=== PATIENT | male | born 1950 | race Hispanic/Latino ===

== ENCOUNTER 2020-06-23 11:34 | Emergency (ER) | payer OTHER ==
[~2020-06-23] VITALS: Ht 170.2 cm; Wt 77.1 kg
[~2020-06-23 11:34] MED LIST: LORTAB 7.51 EA PO; Z.0.LEVAQUIN500 MG PO; Z.0.LISINOPRIL10 MG PO; Z.0.SIMVASTATIN40 MG; Z.0.VICODIN HP TAB1 PO; [UNRECOGNIZED DRUG - OTHER]
[2020-06-23] MEDS ORDERED: DEXAMETHASONE SOD PHOS 10 MG/1 ML VIAL IV SCH (12:30)
[2020-06-23] MEDS ORDERED: AZITHROMYCIN 500MG/NS 250 ML 250 ML IV SCH (12:30)
[2020-06-23 12:52] LABS: BASOPHILS % 0.1 % (0.0-1.0); HEMATOCRIT 39.5 % (38.2-49.6); HEMOGLOBIN 13.3 g/dL (14.0-18.0); LYMPHOCYTES # (AUTO) 0.5 (1.0-3.2); LYMPHOCYTES % 3.7 % (18.0-39.1); MEAN CORPUSCULAR HEMOGLOBIN 30.4 pg (28-32); MEAN CORPUSCULAR HGB CONC 33.7 g/dL (31-35); MEAN CORPUSCULAR VOLUME 90.4 fL (81-99); MONOCYTES # (AUTO) 0.3 (0.2-0.8); MONOCYTES % 2.1 % (4.4-11.3); NEUTROPHILS # (AUTO) 13.2 (2.1-6.9); NEUTROPHILS % 93.3 % (38.7-80.0); PLATELET COUNT 229 x10e3/uL (140-360); RED BLOOD COUNT 4.37 x10e6/uL (4.3-5.7); RED CELL DISTRIBUTION WIDTH 12.8 % (11.7-14.4)
[2020-06-23 12:57] LABS: INR 0.96; PROTHROMBIN TIME 13.4 seconds (11.9-14.5)
[2020-06-23] MEDS ORDERED: CEFTRIAXONE SOD 1 GM/NS 50 ML 50 ML IV SCH (13:00)
[2020-06-23 13:06] LABS: ALBUMIN 2.5 g/dL (3.5-5.0); ALBUMIN/GLOBULIN RATIO 0.6 (0.8-2.0); ANION GAP 18.1 mmol/L (8-16); CALCIUM 8.3 mg/dL (8.4-10.2); CREATININE, SERUM 1.61 mg/dL (0.72-1.25); MAGNESIUM 1.9 MG/DL (1.3-2.1); POTASSIUM 5.1 mmol/L (3.5-5.1)
[2020-06-23 13:13] LABS: CREATINE KINASE MB 0.5 ng/mL (0-5.0)
[2020-06-23 15:16] VITALS: BP 130/87
== END 2020-06-23 15:32 | disposition home or self-care (01) ==
LOC: ER 12:03
DX: U07.1 COVID-19 (principal); J18.9 Pneumonia, unspecified organism; R06.02 Shortness of breath; R05 Cough; E78.00 Pure hypercholesterolemia, unspecified
CPT/HCPCS: 36415; 71045; 80053; 82550; 82553; 83735; 83880; 84484; 85025; 85610; 85730; 87040; 93005; 99285; J0456; J0696; J1100; U0002

== ENCOUNTER 2020-06-25 10:39 | Inpatient (IN) | payer MEDICARE, OTHER ==
[~2020-06-25] VITALS: Ht 170.2 cm; Wt 77.1 kg
[2020-06-25 11:42] LABS: BASOPHILS % 0.2 % (0.0-1.0); EOSINOPHILS % 0.1 % (0.0-6.0); HEMATOCRIT 42.4 % (38.2-49.6); HEMOGLOBIN 14.1 g/dL (14.0-18.0); LYMPHOCYTES # (AUTO) 0.7 (1.0-3.2); LYMPHOCYTES % 4.7 % (18.0-39.1); MEAN CORPUSCULAR HEMOGLOBIN 30.1 pg (28-32); MEAN CORPUSCULAR HGB CONC 33.3 g/dL (31-35); MEAN CORPUSCULAR VOLUME 90.6 fL (81-99); MONOCYTES # (AUTO) 0.4 (0.2-0.8); MONOCYTES % 2.6 % (4.4-11.3); NEUTROPHILS # (AUTO) 14.2 (2.1-6.9); NEUTROPHILS % 91.4 % (38.7-80.0); PLATELET COUNT 132 x10e3/uL (140-360); RED BLOOD COUNT 4.68 x10e6/uL (4.3-5.7)
[2020-06-25 11:53] LABS: ALANINE AMINOTRANSFERASE 78 IU/L (0-55); ALBUMIN 2.4 g/dL (3.5-5.0); ALBUMIN/GLOBULIN RATIO 0.5 (0.8-2.0); ALKALINE PHOSPHATASE 165 IU/L (40-150); ANION GAP 19.6 mmol/L (8-16); BLOOD UREA NITROGEN 38 mg/dL (7-26); BUN/CREATININE RATIO 35 (6-25); CALCIUM 8.1 mg/dL (8.4-10.2); CARBON DIOXIDE 22 mmol/L (22-29); CHLORIDE 101 mmol/L (98-107); CREATINE KINASE 46 IU/L (30-200); EST GLOMERULAR FILTRATION RATE > 60 ML/MIN (60-); GLUCOSE 324 mg/dL (74-118); POTASSIUM 4.6 mmol/L (3.5-5.1); SODIUM 138 mmol/L (136-145)
[2020-06-25] MEDS ORDERED: LACTATED RINGER'S 1,000 ML INJ ONE (16:30)
[2020-06-25] MEDS ORDERED: GUAIFENESIN/CODEINE 10 ML CUP PO PRN (16:30)
[2020-06-25] MEDS: ENOXAPARIN SOD INJ 40 MG/0.4 ML SYR SC SCH (16:57)
[2020-06-25] MEDS: ASCORBIC ACID 500 MG TAB PO SCH (16:57)
[2020-06-25] MEDS: CEFTRIAXONE SOD 1 GM/NS 50 ML 50 ML IV SCH (16:57)
[2020-06-25] MEDS: AZITHROMYCIN 500MG/NS 250 ML 250 ML IV SCH (17:22)
[2020-06-25 18:47] LABS: CREATINE KINASE MB 0.4 ng/mL (0-5.0)
[2020-06-25] MEDS ORDERED: REMDESIVIR 200MG/NS 100ML 200 MG in SODIUM CHLORIDE 0.9% 100 ML 100 ML IV ONE (19:30)
[2020-06-25 20:00] VITALS: BP 134/76
[2020-06-25] MEDS: ZOLPIDEM TARTRATE 5 MG TAB PO PRN (20:24)
[2020-06-25 21:00] VITALS: BP 143/71
[2020-06-25] MEDS: DEXAMETHASONE 4 MG TAB PO SCH (22:00)
[2020-06-25] MEDS ORDERED: HYDROCODONE/APAP 5MG-325MG TAB PO PRN (22:30)
[2020-06-25] MEDS: ACETAMINOPHEN 325 MG TAB PO PRN (22:50)
[2020-06-26] VITALS (8 sets, daily range): BP systolic 125–142; BP diastolic 57–74
[2020-06-26 05:33] LABS: BASOPHILS % 0.1 % (0.0-1.0); HEMATOCRIT 38.8 % (38.2-49.6); LYMPHOCYTES # (AUTO) 0.4 (1.0-3.2); LYMPHOCYTES % 3.1 % (18.0-39.1); MEAN CORPUSCULAR HEMOGLOBIN 29.5 pg (28-32); MEAN CORPUSCULAR HGB CONC 33.5 g/dL (31-35); MEAN CORPUSCULAR VOLUME 88.2 fL (81-99); MONOCYTES # (AUTO) 0.3 (0.2-0.8); MONOCYTES % 2.3 % (4.4-11.3); NEUTROPHILS # (AUTO) 12.7 (2.1-6.9); NEUTROPHILS % 93.8 % (38.7-80.0); RED CELL DISTRIBUTION WIDTH 12.9 % (11.7-14.4)
[2020-06-26 05:43] LABS: PLATELET COUNT 95 x10e3/uL (140-360)
[2020-06-26 05:56] LABS: ALANINE AMINOTRANSFERASE 94 IU/L (0-55); ALBUMIN/GLOBULIN RATIO 0.5 (0.8-2.0); ALKALINE PHOSPHATASE 176 IU/L (40-150); ANION GAP 13.9 mmol/L (8-16); BLOOD UREA NITROGEN 27 mg/dL (7-26); BUN/CREATININE RATIO 33 (6-25); CALCIUM 7.9 mg/dL (8.4-10.2); CARBON DIOXIDE 22 mmol/L (22-29); CHLORIDE 102 mmol/L (98-107); CREATININE, SERUM 0.82 mg/dL (0.72-1.25); EST GLOMERULAR FILTRATION RATE > 60 ML/MIN (60-); GLUCOSE 295 mg/dL (74-118); POTASSIUM 4.9 mmol/L (3.5-5.1); SODIUM 133 mmol/L (136-145)
[2020-06-26] MEDS: ZINC SULFATE 220 MG CAP PO SCH (09:38)
[2020-06-26] MEDS: ASCORBIC ACID 500 MG TAB PO SCH ×2 (09:38→17:20)
[2020-06-26] MEDS: REMDESIVIR 100MG/NS 100ML 100 MG IV SCH (14:40)
[2020-06-26] MEDS: CEFTRIAXONE SOD 1 GM/NS 50 ML 50 ML IV SCH (16:00)
[2020-06-26] MEDS: AZITHROMYCIN 500MG/NS 250 ML 250 ML IV SCH (17:20)
[2020-06-26] MEDS: ENOXAPARIN SOD INJ 40 MG/0.4 ML SYR SC SCH (17:20)
[2020-06-26] MEDS: DEXAMETHASONE 4 MG TAB PO SCH (21:21)
[2020-06-26] MEDS: ZOLPIDEM TARTRATE 5 MG TAB PO PRN (22:33)
[2020-06-27] VITALS (9 sets, daily range): BP systolic 122–134; BP diastolic 65–82
[2020-06-27 06:01] LABS: BASOPHILS % 0.1 % (0.0-1.0); HEMATOCRIT 36.8 % (38.2-49.6); HEMOGLOBIN 12.5 g/dL (14.0-18.0); LYMPHOCYTES # (AUTO) 0.4 (1.0-3.2); LYMPHOCYTES % 3.3 % (18.0-39.1); MEAN CORPUSCULAR HEMOGLOBIN 30.4 pg (28-32); MEAN CORPUSCULAR VOLUME 89.5 fL (81-99); MONOCYTES # (AUTO) 0.2 (0.2-0.8); MONOCYTES % 1.5 % (4.4-11.3); NEUTROPHILS # (AUTO) 10.2 (2.1-6.9); NEUTROPHILS % 94.4 % (38.7-80.0); RED BLOOD COUNT 4.11 x10e6/uL (4.3-5.7); RED CELL DISTRIBUTION WIDTH 12.7 % (11.7-14.4)
[2020-06-27 06:13] LABS: PLATELET COUNT 86 x10e3/uL (140-360)
[2020-06-27 06:24] LABS: ALANINE AMINOTRANSFERASE 138 IU/L (0-55); ALBUMIN 1.8 g/dL (3.5-5.0); ALKALINE PHOSPHATASE 240 IU/L (40-150); ANION GAP 12.9 mmol/L (8-16); BILIRUBIN,DIRECT 0.4 mg/dL (0.0-0.5); BLOOD UREA NITROGEN 28 mg/dL (7-26); BUN/CREATININE RATIO 36 (6-25); CALCIUM 7.6 mg/dL (8.4-10.2); CARBON DIOXIDE 23 mmol/L (22-29); CHLORIDE 103 mmol/L (98-107); CREATININE, SERUM 0.78 mg/dL (0.72-1.25); EST GLOMERULAR FILTRATION RATE > 60 ML/MIN (60-); GLUCOSE 307 mg/dL (74-118); POTASSIUM 4.9 mmol/L (3.5-5.1); SODIUM 134 mmol/L (136-145)
[2020-06-27] MEDS: INSULIN LISPRO 100 UNIT/1 ML 3ML VIAL SQ SCH ×4 (08:02→21:00)
[2020-06-27] MEDS: ASCORBIC ACID 500 MG TAB PO SCH ×2 (09:31→17:21)
[2020-06-27] MEDS: ZINC SULFATE 220 MG CAP PO SCH (09:31)
[2020-06-27] MEDS: REMDESIVIR 100MG/NS 100ML 100 MG IV SCH (14:15)
[2020-06-27] MEDS: ENOXAPARIN SOD INJ 40 MG/0.4 ML SYR SC SCH (17:21)
[2020-06-27] MEDS: CEFTRIAXONE SOD 1 GM/NS 50 ML 50 ML IV SCH (17:21)
[2020-06-27] MEDS: AZITHROMYCIN 500MG/NS 250 ML 250 ML IV SCH (18:30)
[2020-06-27] MEDS: INSULIN GLARGINE 100 UNITS/ML VIAL SQ SCH (21:00)
[2020-06-27] MEDS: DEXAMETHASONE 4 MG TAB PO SCH (22:00)
[2020-06-28] VITALS (8 sets, daily range): BP systolic 111–135; BP diastolic 64–78
[2020-06-28 05:41] LABS: BASOPHILS % 0.2 % (0.0-1.0); HEMATOCRIT 36.2 % (38.2-49.6); HEMOGLOBIN 12.4 g/dL (14.0-18.0); LYMPHOCYTES # (AUTO) 0.4 (1.0-3.2); LYMPHOCYTES % 2.9 % (18.0-39.1); MEAN CORPUSCULAR HGB CONC 34.3 g/dL (31-35); MEAN CORPUSCULAR VOLUME 87.4 fL (81-99); MONOCYTES # (AUTO) 0.2 (0.2-0.8); MONOCYTES % 1.7 % (4.4-11.3); NEUTROPHILS # (AUTO) 13.1 (2.1-6.9); NEUTROPHILS % 94.4 % (38.7-80.0); PLATELET COUNT 81 x10e3/uL (140-360); RED BLOOD COUNT 4.14 x10e6/uL (4.3-5.7); RED CELL DISTRIBUTION WIDTH 12.6 % (11.7-14.4)
[2020-06-28 06:14] LABS: ALANINE AMINOTRANSFERASE 112 IU/L (0-55); ALBUMIN 1.9 g/dL (3.5-5.0); ALKALINE PHOSPHATASE 225 IU/L (40-150); ANION GAP 14.6 mmol/L (8-16); BILIRUBIN,DIRECT 0.4 mg/dL (0.0-0.5); BLOOD UREA NITROGEN 31 mg/dL (7-26); BUN/CREATININE RATIO 44 (6-25); CALCIUM 7.5 mg/dL (8.4-10.2); CARBON DIOXIDE 22 mmol/L (22-29); CHLORIDE 103 mmol/L (98-107); CREATININE, SERUM 0.71 mg/dL (0.72-1.25); EST GLOMERULAR FILTRATION RATE > 60 ML/MIN (60-); GLUCOSE 238 mg/dL (74-118); POTASSIUM 4.6 mmol/L (3.5-5.1); SODIUM 135 mmol/L (136-145)
[2020-06-28] MEDS: ASCORBIC ACID 500 MG TAB PO SCH ×2 (09:35→17:02)
[2020-06-28] MEDS: ZINC SULFATE 220 MG CAP PO SCH (09:35)
[2020-06-28] MEDS: INSULIN LISPRO 100 UNIT/1 ML 3ML VIAL SQ SCH ×4 (09:48→21:47)
[2020-06-28] MEDS: REMDESIVIR 100MG/NS 100ML 100 MG IV SCH (14:01)
[2020-06-28] MEDS: CEFTRIAXONE SOD 1 GM/NS 50 ML 50 ML IV SCH (17:02)
[2020-06-28] MEDS: ENOXAPARIN SOD INJ 40 MG/0.4 ML SYR SC SCH (17:02)
[2020-06-28] MEDS: AZITHROMYCIN 500MG/NS 250 ML 250 ML IV SCH (17:54)
[2020-06-28] MEDS: INSULIN GLARGINE 100 UNITS/ML VIAL SQ SCH (21:48)
[2020-06-28] MEDS: DEXAMETHASONE 4 MG TAB PO SCH (23:21)
[2020-06-29] VITALS (8 sets, daily range): BP systolic 114–142; BP diastolic 67–83
[2020-06-29 05:01] LABS: BASOPHILS % 0.1 % (0.0-1.0); HEMATOCRIT 37.2 % (38.2-49.6); HEMOGLOBIN 12.8 g/dL (14.0-18.0); LYMPHOCYTES # (AUTO) 0.4 (1.0-3.2); LYMPHOCYTES % 2.9 % (18.0-39.1); MEAN CORPUSCULAR HEMOGLOBIN 30.3 pg (28-32); MEAN CORPUSCULAR HGB CONC 34.4 g/dL (31-35); MEAN CORPUSCULAR VOLUME 88.2 fL (81-99); MONOCYTES # (AUTO) 0.3 (0.2-0.8); MONOCYTES % 1.7 % (4.4-11.3); NEUTROPHILS # (AUTO) 13.9 (2.1-6.9); NEUTROPHILS % 94.4 % (38.7-80.0); PLATELET COUNT 69 x10e3/uL (140-360); RED BLOOD COUNT 4.22 x10e6/uL (4.3-5.7); RED CELL DISTRIBUTION WIDTH 12.5 % (11.7-14.4)
[2020-06-29] MEDS: ZINC SULFATE 220 MG CAP PO SCH (08:34)
[2020-06-29] MEDS: ASCORBIC ACID 500 MG TAB PO SCH ×2 (08:34→16:49)
[2020-06-29] MEDS: INSULIN LISPRO 100 UNIT/1 ML 3ML VIAL SQ SCH ×4 (08:37→20:46)
[2020-06-29] MEDS: REMDESIVIR 100MG/NS 100ML 100 MG IV SCH (15:13)
[2020-06-29] MEDS: ENOXAPARIN SOD INJ 40 MG/0.4 ML SYR SC SCH (16:49)
[2020-06-29] MEDS: CEFTRIAXONE SOD 1 GM/NS 50 ML 50 ML IV SCH (16:49)
[2020-06-29] MEDS: AZITHROMYCIN 500MG/NS 250 ML 250 ML IV SCH (16:49)
[2020-06-29] MEDS: INSULIN GLARGINE 100 UNITS/ML VIAL SQ SCH (20:47)
[2020-06-29] MEDS: DEXAMETHASONE 4 MG TAB PO SCH (21:29)
[2020-06-30] VITALS (8 sets, daily range): BP systolic 119–131; BP diastolic 64–79
[2020-06-30 05:31] LABS: BASOPHILS % 0.2 % (0.0-1.0); HEMATOCRIT 36.8 % (38.2-49.6); HEMOGLOBIN 12.7 g/dL (14.0-18.0); LYMPHOCYTES # (AUTO) 0.4 (1.0-3.2); LYMPHOCYTES % 3.3 % (18.0-39.1); MEAN CORPUSCULAR HEMOGLOBIN 30.2 pg (28-32); MEAN CORPUSCULAR HGB CONC 34.5 g/dL (31-35); MEAN CORPUSCULAR VOLUME 87.6 fL (81-99); MONOCYTES # (AUTO) 0.2 (0.2-0.8); NEUTROPHILS # (AUTO) 10.7 (2.1-6.9); NEUTROPHILS % 93.5 % (38.7-80.0); PLATELET COUNT 64 x10e3/uL (140-360); RED CELL DISTRIBUTION WIDTH 12.6 % (11.7-14.4)
[2020-06-30 05:55] LABS: ALANINE AMINOTRANSFERASE 75 IU/L (0-55); ALBUMIN 1.9 g/dL (3.5-5.0); ALBUMIN/GLOBULIN RATIO 0.6 (0.8-2.0); ALKALINE PHOSPHATASE 196 IU/L (40-150); ANION GAP 13.6 mmol/L (8-16); BLOOD UREA NITROGEN 29 mg/dL (7-26); BUN/CREATININE RATIO 43 (6-25); CALCIUM 7.4 mg/dL (8.4-10.2); CARBON DIOXIDE 24 mmol/L (22-29); CHLORIDE 102 mmol/L (98-107); CREATININE, SERUM 0.67 mg/dL (0.72-1.25); EST GLOMERULAR FILTRATION RATE > 60 ML/MIN (60-); GLUCOSE 214 mg/dL (74-118); POTASSIUM 4.6 mmol/L (3.5-5.1); SODIUM 135 mmol/L (136-145)
[2020-06-30] MEDS: INSULIN LISPRO 100 UNIT/1 ML 3ML VIAL SQ SCH ×4 (07:30→21:00)
[2020-06-30] MEDS: ASCORBIC ACID 500 MG TAB PO SCH ×2 (08:43→17:05)
[2020-06-30] MEDS: ZINC SULFATE 220 MG CAP PO SCH (08:43)
[2020-06-30] MEDS: ENOXAPARIN SOD INJ 40 MG/0.4 ML SYR SC SCH (17:05)
[2020-06-30] MEDS: CEFTRIAXONE SOD 1 GM/NS 50 ML 50 ML IV SCH (17:05)
[2020-06-30] MEDS: AZITHROMYCIN 500MG/NS 250 ML 250 ML IV SCH (17:53)
[2020-06-30] MEDS: ZOLPIDEM TARTRATE 5 MG TAB PO PRN (21:12)
[2020-06-30] MEDS: DEXAMETHASONE 4 MG TAB PO SCH (21:12)
[2020-06-30] MEDS: INSULIN GLARGINE 100 UNITS/ML VIAL SQ SCH (21:19)
[2020-07-01] VITALS (8 sets, daily range): BP systolic 111–129; BP diastolic 57–71
[2020-07-01 04:41] LABS: BASOPHILS % 0.2 % (0.0-1.0); HEMATOCRIT 35.5 % (38.2-49.6); HEMOGLOBIN 12.2 g/dL (14.0-18.0); LYMPHOCYTES # (AUTO) 0.4 (1.0-3.2); LYMPHOCYTES % 2.6 % (18.0-39.1); MEAN CORPUSCULAR HEMOGLOBIN 29.7 pg (28-32); MEAN CORPUSCULAR HGB CONC 34.4 g/dL (31-35); MEAN CORPUSCULAR VOLUME 86.4 fL (81-99); MONOCYTES # (AUTO) 0.3 (0.2-0.8); MONOCYTES % 1.8 % (4.4-11.3); NEUTROPHILS # (AUTO) 13.4 (2.1-6.9); NEUTROPHILS % 94.4 % (38.7-80.0); PLATELET COUNT 78 x10e3/uL (140-360); RED BLOOD COUNT 4.11 x10e6/uL (4.3-5.7); RED CELL DISTRIBUTION WIDTH 12.9 % (11.7-14.4)
[2020-07-01 04:58] LABS: ALANINE AMINOTRANSFERASE 60 IU/L (0-55); ALBUMIN 1.9 g/dL (3.5-5.0); ALBUMIN/GLOBULIN RATIO 0.6 (0.8-2.0); ALKALINE PHOSPHATASE 178 IU/L (40-150); ANION GAP 14.8 mmol/L (8-16); BLOOD UREA NITROGEN 26 mg/dL (7-26); BUN/CREATININE RATIO 39 (6-25); CALCIUM 7.4 mg/dL (8.4-10.2); CARBON DIOXIDE 22 mmol/L (22-29); CHLORIDE 101 mmol/L (98-107); CREATININE, SERUM 0.67 mg/dL (0.72-1.25); EST GLOMERULAR FILTRATION RATE > 60 ML/MIN (60-); GLUCOSE 234 mg/dL (74-118); POTASSIUM 4.8 mmol/L (3.5-5.1); SODIUM 133 mmol/L (136-145)
[2020-07-01] MEDS: INSULIN LISPRO 100 UNIT/1 ML 3ML VIAL SQ SCH ×4 (07:30→20:26)
[2020-07-01] MEDS: ASCORBIC ACID 500 MG TAB PO SCH ×2 (09:12→17:11)
[2020-07-01] MEDS: ZINC SULFATE 220 MG CAP PO SCH (09:12)
[2020-07-01] MEDS: FONDAPARINUX SODIUM 2.5 MG/0.5 ML SYR SQ SCH (17:11)
[2020-07-01] MEDS: CEFTRIAXONE SOD 1 GM/NS 50 ML 50 ML IV SCH (17:11)
[2020-07-01] MEDS ORDERED: SODIUM CHLORIDE 0.9% 250ML 250 ML ONE (17:34)
[2020-07-01] MEDS: AZITHROMYCIN 500MG/NS 250 ML 250 ML IV SCH (17:54)
[2020-07-01] MEDS: ACETAMINOPHEN 325 MG TAB PO PRN (20:01)
[2020-07-01] MEDS: INSULIN GLARGINE 100 UNITS/ML VIAL SQ SCH (20:27)
[2020-07-01] MEDS: DEXAMETHASONE 4 MG TAB PO SCH (22:01)
[2020-07-02] VITALS (8 sets, daily range): BP systolic 121–138; BP diastolic 66–77
[2020-07-02 04:00] LABS: BASOPHILS % 0.1 % (0.0-1.0); HEMATOCRIT 35.2 % (38.2-49.6); HEMOGLOBIN 12.3 g/dL (14.0-18.0); LYMPHOCYTES # (AUTO) 0.3 (1.0-3.2); LYMPHOCYTES % 1.9 % (18.0-39.1); MEAN CORPUSCULAR HEMOGLOBIN 30.1 pg (28-32); MEAN CORPUSCULAR HGB CONC 34.9 g/dL (31-35); MEAN CORPUSCULAR VOLUME 86.1 fL (81-99); MONOCYTES # (AUTO) 0.2 (0.2-0.8); MONOCYTES % 1.5 % (4.4-11.3); NEUTROPHILS # (AUTO) 14.6 (2.1-6.9); NEUTROPHILS % 95.7 % (38.7-80.0); PLATELET COUNT 92 x10e3/uL (140-360); RED BLOOD COUNT 4.09 x10e6/uL (4.3-5.7); RED CELL DISTRIBUTION WIDTH 12.9 % (11.7-14.4)
[2020-07-02 04:18] LABS: ALANINE AMINOTRANSFERASE 51 IU/L (0-55); ALBUMIN 1.9 g/dL (3.5-5.0); ALBUMIN/GLOBULIN RATIO 0.6 (0.8-2.0); ALKALINE PHOSPHATASE 162 IU/L (40-150); ANION GAP 11.5 mmol/L (8-16); BLOOD UREA NITROGEN 22 mg/dL (7-26); BUN/CREATININE RATIO 36 (6-25); CALCIUM 7.2 mg/dL (8.4-10.2); CARBON DIOXIDE 23 mmol/L (22-29); CHLORIDE 101 mmol/L (98-107); CREATININE, SERUM 0.61 mg/dL (0.72-1.25); EST GLOMERULAR FILTRATION RATE > 60 ML/MIN (60-); GLUCOSE 154 mg/dL (74-118); POTASSIUM 4.5 mmol/L (3.5-5.1); SODIUM 131 mmol/L (136-145)
[2020-07-02] MEDS: INSULIN LISPRO 100 UNIT/1 ML 3ML VIAL SQ SCH ×4 (07:30→20:21)
[2020-07-02] MEDS: ASCORBIC ACID 500 MG TAB PO SCH ×2 (09:05→16:58)
[2020-07-02] MEDS: ZINC SULFATE 220 MG CAP PO SCH (09:05)
[2020-07-02] MEDS: CEFTRIAXONE SOD 1 GM/NS 50 ML 50 ML IV SCH (16:58)
[2020-07-02] MEDS: FONDAPARINUX SODIUM 2.5 MG/0.5 ML SYR SQ SCH (16:58)
[2020-07-02] MEDS: AZITHROMYCIN 500MG/NS 250 ML 250 ML IV SCH (18:05)
[2020-07-02] MEDS: INSULIN GLARGINE 100 UNITS/ML VIAL SQ SCH (21:00)
[2020-07-02] MEDS: DEXAMETHASONE 4 MG TAB PO SCH (21:38)
[2020-07-03] VITALS (8 sets, daily range): BP systolic 105–133; BP diastolic 67–72
[2020-07-03 05:02] LABS: BASOPHILS % 0.2 % (0.0-1.0); HEMATOCRIT 35.5 % (38.2-49.6); HEMOGLOBIN 12.2 g/dL (14.0-18.0); LYMPHOCYTES # (AUTO) 0.3 (1.0-3.2); LYMPHOCYTES % 2.6 % (18.0-39.1); MEAN CORPUSCULAR HEMOGLOBIN 29.6 pg (28-32); MEAN CORPUSCULAR HGB CONC 34.4 g/dL (31-35); MEAN CORPUSCULAR VOLUME 86.2 fL (81-99); MONOCYTES # (AUTO) 0.2 (0.2-0.8); MONOCYTES % 1.9 % (4.4-11.3); NEUTROPHILS # (AUTO) 11.1 (2.1-6.9); NEUTROPHILS % 94.7 % (38.7-80.0); PLATELET COUNT 121 x10e3/uL (140-360); RED BLOOD COUNT 4.12 x10e6/uL (4.3-5.7); RED CELL DISTRIBUTION WIDTH 12.9 % (11.7-14.4)
[2020-07-03 05:14] LABS: ANION GAP 12.6 mmol/L (8-16); BLOOD UREA NITROGEN 22 mg/dL (7-26); BUN/CREATININE RATIO 35 (6-25); CALCIUM 7.5 mg/dL (8.4-10.2); CARBON DIOXIDE 25 mmol/L (22-29); CHLORIDE 100 mmol/L (98-107); CREATININE, SERUM 0.62 mg/dL (0.72-1.25); EST GLOMERULAR FILTRATION RATE > 60 ML/MIN (60-); GLUCOSE 150 mg/dL (74-118); POTASSIUM 4.6 mmol/L (3.5-5.1); SODIUM 133 mmol/L (136-145)
[2020-07-03] MEDS: INSULIN LISPRO 100 UNIT/1 ML 3ML VIAL SQ SCH ×4 (07:30→20:25)
[2020-07-03] MEDS: ASCORBIC ACID 500 MG TAB PO SCH ×2 (08:18→16:48)
[2020-07-03] MEDS: ZINC SULFATE 220 MG CAP PO SCH (08:18)
[2020-07-03] MEDS: FONDAPARINUX SODIUM 2.5 MG/0.5 ML SYR SQ SCH (16:48)
[2020-07-03] MEDS: CEFTRIAXONE SOD 1 GM/NS 50 ML 50 ML IV SCH (16:48)
[2020-07-03] MEDS: AZITHROMYCIN 500MG/NS 250 ML 250 ML IV SCH (18:08)
[2020-07-03] MEDS: INSULIN GLARGINE 100 UNITS/ML VIAL SQ SCH (20:25)
[2020-07-03] MEDS: DEXAMETHASONE 4 MG TAB PO SCH (22:05)
[2020-07-04] VITALS (7 sets, daily range): BP systolic 118–134; BP diastolic 67–76
[2020-07-04] MEDS: INSULIN LISPRO 100 UNIT/1 ML 3ML VIAL SQ SCH ×4 (08:30→21:00)
[2020-07-04] MEDS: ASCORBIC ACID 500 MG TAB PO SCH ×2 (08:58→16:21)
[2020-07-04] MEDS: ZINC SULFATE 220 MG CAP PO SCH (08:58)
[2020-07-04] MEDS: CEFTRIAXONE SOD 1 GM/NS 50 ML 50 ML IV SCH (16:21)
[2020-07-04] MEDS: FONDAPARINUX SODIUM 2.5 MG/0.5 ML SYR SQ SCH (16:21)
[2020-07-04] MEDS: AZITHROMYCIN 500MG/NS 250 ML 250 ML IV SCH (18:09)
[2020-07-04] MEDS: INSULIN GLARGINE 100 UNITS/ML VIAL SQ SCH (21:00)
[2020-07-04] MEDS: DEXAMETHASONE 4 MG TAB PO SCH (21:05)
[2020-07-05] VITALS (9 sets, daily range): BP systolic 109–138; BP diastolic 58–77
[2020-07-05 05:28] LABS: BASOPHILS % 0.1 % (0.0-1.0); HEMATOCRIT 35.1 % (38.2-49.6); HEMOGLOBIN 11.9 g/dL (14.0-18.0); LYMPHOCYTES # (AUTO) 0.4 (1.0-3.2); LYMPHOCYTES % 4.6 % (18.0-39.1); MEAN CORPUSCULAR HEMOGLOBIN 29.3 pg (28-32); MEAN CORPUSCULAR HGB CONC 33.9 g/dL (31-35); MEAN CORPUSCULAR VOLUME 86.5 fL (81-99); MONOCYTES # (AUTO) 0.2 (0.2-0.8); MONOCYTES % 2.2 % (4.4-11.3); NEUTROPHILS # (AUTO) 8.3 (2.1-6.9); NEUTROPHILS % 92.5 % (38.7-80.0); PLATELET COUNT 155 x10e3/uL (140-360); RED BLOOD COUNT 4.06 x10e6/uL (4.3-5.7); RED CELL DISTRIBUTION WIDTH 13.1 % (11.7-14.4)
[2020-07-05 06:07] LABS: ALANINE AMINOTRANSFERASE 39 IU/L (0-55); ALBUMIN 1.9 g/dL (3.5-5.0); ALBUMIN/GLOBULIN RATIO 0.6 (0.8-2.0); ALKALINE PHOSPHATASE 124 IU/L (40-150); ANION GAP 11.4 mmol/L (8-16); BLOOD UREA NITROGEN 20 mg/dL (7-26); BUN/CREATININE RATIO 31 (6-25); CALCIUM 7.5 mg/dL (8.4-10.2); CARBON DIOXIDE 25 mmol/L (22-29); CHLORIDE 101 mmol/L (98-107); CREATININE, SERUM 0.65 mg/dL (0.72-1.25); EST GLOMERULAR FILTRATION RATE > 60 ML/MIN (60-); GLUCOSE 199 mg/dL (74-118); POTASSIUM 4.4 mmol/L (3.5-5.1); SODIUM 133 mmol/L (136-145)
[2020-07-05] MEDS: ASCORBIC ACID 500 MG TAB PO SCH ×2 (08:43→17:14)
[2020-07-05] MEDS: ZINC SULFATE 220 MG CAP PO SCH (08:44)
[2020-07-05] MEDS: INSULIN LISPRO 100 UNIT/1 ML 3ML VIAL SQ SCH ×4 (09:00→21:07)
[2020-07-05] MEDS: FONDAPARINUX SODIUM 2.5 MG/0.5 ML SYR SQ SCH (17:14)
[2020-07-05] MEDS: INSULIN GLARGINE 100 UNITS/ML VIAL SQ SCH (21:07)
[2020-07-06] VITALS (7 sets, daily range): BP systolic 119–137; BP diastolic 65–70
[2020-07-06] MEDS: INSULIN LISPRO 100 UNIT/1 ML 3ML VIAL SQ SCH ×4 (07:30→21:00)
[2020-07-06] MEDS: ASCORBIC ACID 500 MG TAB PO SCH ×2 (08:25→16:15)
[2020-07-06] MEDS: ZINC SULFATE 220 MG CAP PO SCH (08:26)
[2020-07-06] MEDS ORDERED: ONDANSETRON HCL INJ 2MG/ML 2ML 2 MG/ML VIAL IV PRN (15:15)
[2020-07-06] MEDS ORDERED: HYDRALAZINE HCL 20 MG/ML VIAL IV PRN (15:15)
[2020-07-06] MEDS ORDERED: SIMETHICONE 80 MG CHEW PO PRN (15:15)
[2020-07-06] MEDS ORDERED: GUAIFENESIN/CODEINE 10 ML CUP PO PRN (15:15)
[2020-07-06] MEDS ORDERED: DOCUSATE SODIUM 100 MG CAP PO PRN (15:15)
[2020-07-06] MEDS ORDERED: BENZONATATE 100 MG CAP PO PRN (15:15)
[2020-07-06] MEDS: FONDAPARINUX SODIUM 2.5 MG/0.5 ML SYR SQ SCH (16:15)
[2020-07-06] MEDS ORDERED: MELATONIN 5 MG TABLET PO PRN (21:00)
[2020-07-06] MEDS: INSULIN GLARGINE 100 UNITS/ML VIAL SQ SCH (21:02)
[2020-07-07] VITALS (8 sets, daily range): BP systolic 118–131; BP diastolic 67–74
[2020-07-07] MEDS: INSULIN LISPRO 100 UNIT/1 ML 3ML VIAL SQ SCH ×4 (07:30→21:20)
[2020-07-07] MEDS: ASCORBIC ACID 500 MG TAB PO SCH ×2 (08:23→16:25)
[2020-07-07] MEDS: ZINC SULFATE 220 MG CAP PO SCH (08:23)
[2020-07-07] MEDS: PANTOPRAZOLE SOD 40 MG TABEC PO SCH (08:23)
[2020-07-07] MEDS: FONDAPARINUX SODIUM 2.5 MG/0.5 ML SYR SQ SCH (16:25)
[2020-07-07] MEDS: INSULIN GLARGINE 100 UNITS/ML VIAL SQ SCH (21:20)
[2020-07-08] VITALS (8 sets, daily range): BP systolic 114–126; BP diastolic 65–72
[2020-07-08 05:01] LABS: BASOPHILS % 0.1 % (0.0-1.0); EOSINOPHILS # (AUTO) 0.1 (0.0-0.4); EOSINOPHILS % 1.3 % (0.0-6.0); HEMATOCRIT 34.6 % (38.2-49.6); HEMOGLOBIN 11.9 g/dL (14.0-18.0); LYMPHOCYTES # (AUTO) 0.8 (1.0-3.2); LYMPHOCYTES % 8.2 % (18.0-39.1); MEAN CORPUSCULAR HEMOGLOBIN 30.2 pg (28-32); MEAN CORPUSCULAR HGB CONC 34.4 g/dL (31-35); MEAN CORPUSCULAR VOLUME 87.8 fL (81-99); MONOCYTES # (AUTO) 0.5 (0.2-0.8); MONOCYTES % 4.7 % (4.4-11.3); NEUTROPHILS # (AUTO) 8.4 (2.1-6.9); NEUTROPHILS % 85.1 % (38.7-80.0); PLATELET COUNT 117 x10e3/uL (140-360); RED BLOOD COUNT 3.94 x10e6/uL (4.3-5.7); RED CELL DISTRIBUTION WIDTH 13.2 % (11.7-14.4)
[2020-07-08 05:17] LABS: ANION GAP 11.9 mmol/L (8-16); BLOOD UREA NITROGEN 11 mg/dL (7-26); BUN/CREATININE RATIO 18 (6-25); CALCIUM 7.6 mg/dL (8.4-10.2); CARBON DIOXIDE 27 mmol/L (22-29); CHLORIDE 102 mmol/L (98-107); EST GLOMERULAR FILTRATION RATE > 60 ML/MIN (60-); GLUCOSE 135 mg/dL (74-118); POTASSIUM 3.9 mmol/L (3.5-5.1); SODIUM 137 mmol/L (136-145)
[2020-07-08] MEDS: INSULIN LISPRO 100 UNIT/1 ML 3ML VIAL SQ SCH ×4 (07:30→21:30)
[2020-07-08] MEDS: PANTOPRAZOLE SOD 40 MG TABEC PO SCH (08:49)
[2020-07-08] MEDS: ZINC SULFATE 220 MG CAP PO SCH (08:49)
[2020-07-08] MEDS: ASCORBIC ACID 500 MG TAB PO SCH ×2 (08:49→16:39)
[2020-07-08] MEDS: FONDAPARINUX SODIUM 2.5 MG/0.5 ML SYR SQ SCH (16:40)
[2020-07-08] MEDS: ACETAMINOPHEN 325 MG TAB PO PRN (18:14)
[2020-07-08] MEDS: INSULIN GLARGINE 100 UNITS/ML VIAL SQ SCH (21:30)
[2020-07-08] MEDS: TAMSULOSIN HCL 0.4 MG CAP PO SCH (21:30)
[2020-07-09] VITALS (8 sets, daily range): BP systolic 117–132; BP diastolic 69–79
[2020-07-09] MEDS: INSULIN LISPRO 100 UNIT/1 ML 3ML VIAL SQ SCH ×4 (07:30→20:46)
[2020-07-09] MEDS: ASCORBIC ACID 500 MG TAB PO SCH ×2 (08:15→16:58)
[2020-07-09] MEDS: ZINC SULFATE 220 MG CAP PO SCH (08:15)
[2020-07-09] MEDS: PANTOPRAZOLE SOD 40 MG TABEC PO SCH (08:15)
[2020-07-09] MEDS ORDERED: METOPROLOL TARTRATE INJ 1 MG/ML VIAL IV PRN (16:45)
[2020-07-09] MEDS: TAMSULOSIN HCL 0.4 MG CAP PO SCH (20:51)
[2020-07-09] MEDS: INSULIN GLARGINE 100 UNITS/ML VIAL SQ SCH (21:00)
[2020-07-10 00:06] VITALS: BP 122/72
[2020-07-10 05:03] VITALS: BP 123/74
[2020-07-10] MEDS: INSULIN LISPRO 100 UNIT/1 ML 3ML VIAL SQ SCH ×2 (07:30→11:30)
[2020-07-10 08:11] VITALS: BP 134/72
[2020-07-10 08:27] VITALS: BP 134/72
[2020-07-10] MEDS: ZINC SULFATE 220 MG CAP PO SCH (09:05)
[2020-07-10] MEDS: ASCORBIC ACID 500 MG TAB PO SCH (09:05)
[2020-07-10] MEDS: PANTOPRAZOLE SOD 40 MG TABEC PO SCH (09:05)
[2020-07-10 12:00] VITALS: BP 134/71
[2020-07-10 15:59] VITALS: BP 149/76
== END 2020-07-10 16:18 | disposition home or self-care (01) | DRG 177 ==
LOC: ER 10:45 → ERHOLD 11:46 → IMCU 18:46
PROVIDERS: ADMIT Internal Medicine; ATTEND Internal Medicine
PROC: 02HV33Z Insertion of Infusion Device into Superior Vena Cava, Percutaneous Approach (ICD-10-PCS; principal; 2020-06-25)
PROC: B548ZZA Ultrasonography of Superior Vena Cava, Guidance (ICD-10-PCS; 2020-06-25)
PROC: XW043E5 Introduction of Remdesivir Anti-infective into Central Vein, Percutaneous Approach, New Technology Group 5 (ICD-10-PCS; 2020-06-25)
PROC: 3E0433Z Introduction of Anti-inflammatory into Central Vein, Percutaneous Approach (ICD-10-PCS; 2020-06-25)
DX: U07.1 COVID-19 (principal); J12.82 Pneumonia due to coronavirus disease 2019; J96.01 Acute respiratory failure with hypoxia; N17.9 Acute kidney failure, unspecified; E87.1 Hypo-osmolality and hyponatremia; E11.65 Type 2 diabetes mellitus with hyperglycemia; I10 Essential (primary) hypertension; N40.0 Benign prostatic hyperplasia without lower urinary tract symptoms; D69.6 Thrombocytopenia, unspecified; R53.81 Other malaise
CPT/HCPCS: 36415; 36569; 71045; 80048; 80053; 80076; 82550; 82553; 82948; 83036; 84484; 85025; 93005; 99251; 99284; J0456; J0696; J1650; J1652; J1815; J7050; J7121

== ENCOUNTER → 2020-12-08 | Outpatient (CLI) | payer MEDICARE, OTHER | LOC: RAD 14:05 | PROVIDERS: ATTEND Family Medicine | DX: M54.5 Low back pain (principal) | CPT/HCPCS: 72110 ==

== ENCOUNTER 2023-09-13 14:00 | Outpatient (RCR) | payer MEDICARE, OTHER ==
[~2023-09-13 14:00] MED LIST changes: +HYDROCODON-ACE1 EA12 PO; +METFORMIN HCL500 MG PO; +VITAMIN B121000 MCG; +VITAMIN D
== END 2023-09-25 ==
LOC: PT 14:00
PROVIDERS: ATTEND Neurological Surgery
DX: M48.061 Spinal stenosis, lumbar region without neurogenic claudication (principal)

== ENCOUNTER 2024-01-17 16:36 | Emergency (ER) | payer MEDICARE, OTHER ==
[~2024-01-17] VITALS: Ht 170.2 cm; Wt 77.1 kg
[~2024-01-17 16:36] MED LIST changes: +CEFDINIR300 MG PO; +FLOMAX0.4 MG PO
[2024-01-17 17:23] VITALS: PULSE 98; RESP 17; TEMP 98.7
[2024-01-17] MEDS ORDERED: LIDOCAINE JELLY 2% 10ML URO-JET ONE (17:43)
[2024-01-17] MEDS: LIDOCAINE JELLY 2% 10ML URO-JET TOP ONE (17:59)
[2024-01-17 18:57] VITALS: BP 153/91; PULSE 76; RESP 17; TEMP 98.7; O2SAT 98
== END 2024-01-17 18:58 | disposition home or self-care (01) ==
LOC: ER 16:59
DX: R30.0 Dysuria (principal); R33.9 Retention of urine, unspecified; R10.30 Lower abdominal pain, unspecified; I10 Essential (primary) hypertension; E11.9 Type 2 diabetes mellitus without complications; E78.5 Hyperlipidemia, unspecified
CPT/HCPCS: 51700; 87086; 87186; 99283